=== PATIENT | female | born 2000 | race African-American/Black ===

== ENCOUNTER 2024-06-05 16:41 | Emergency (ER) | payer SELFPAY ==
[~2024-06-05] VITALS: Ht 170.2 cm; Wt 81.8 kg
[~2024-06-05 16:41] MED LIST: NO MEDS
[2024-06-05 17:05] VITALS: TEMP 98
[2024-06-05 17:15] LABS: COVID AG,FIA SOURCE NASAL SWAB
[2024-06-05 17:17] LABS: APPEARANCE,URINE HAZY (CLEAR); BILIRUBIN,URINE NEGATIVE (NEGATIVE); COLOR,URINE LIGHT ORANGE (YELLOW); GLUCOSE, URINE (UA) NEGATIVE (NEGATIVE); KETONES,URINE TRACE mg/dL (NEGATIVE); LEUKOCYTE ESTERASE ,URINE SMALL (NEGATIVE); NITRATE,URINE NEGATIVE (NEGATIVE); OCCULT BLOOD,URINE LARGE (NEGATIVE); PH,URINE 6.5 (5.0-8.0); PROTEIN,URINE 300-600,SEE CONFIRM mg/dL (NEGATIVE); SPECIFIC GRAVITIY, URINE 1.035 (1.003-1.030)
[2024-06-05 17:31] LABS: EOSINOPHILS % (AUTO) 0.3 % (1.0-6.0); HEMATOCRIT 47.1 % (36-46); HEMOGLOBIN 15.3 g/dL (12.0-16.0); LYMPHOCYTES # (AUTO) 1.7 K/uL (1.0-4.8); LYMPHOCYTES % (AUTO) 41.4 % (22.0-44.0); MEAN CORPUSCULAR HEMOGLOBIN 25.5 pg (26.0-34.0); MEAN CORPUSCULAR HGB CONC 32.4 G/dL (31.0-37.0); MEAN CORPUSCULAR VOLUME 79 fL (80-100); MONOCYTES # (AUTO) 0.7 K/uL (0.1-1.0); MONOCYTES % (AUTO) 16.2 % (2.0-9.0); NEUTROPHILS # (AUTO) 1.7 K/uL (1.8-7.7); NEUTROPHILS % (AUTO) 41.1 % (40.0-70.0); PLATELET COUNT (AUTO) 252 K/uL (150-450); RED CELL DISTRIBUTION WIDTH 13.4 % (11.5-14.5); WHITE BLOOD COUNT (AUTO) 4.1 K/uL (4.5-11.0)
[2024-06-05 17:34] LABS: ANION GAP 11 mmol/L (8-16); CALCIUM, TOTAL 8.7 mg/dL (8.8-10.5); CARBON DIOXIDE 25 mmol/L (22-29); CHLORIDE 99 mmol/L (98-107); CREATININE 1.24 mg/dL (0.60-1.30); GLOMERULAR FILTR. RATE CALC > 60 mL/min (>60); GLUCOSE,RANDOM 117 mg/dL (70-110); POTASSIUM 3.4 mmol/L (3.5-5.1); SODIUM SERUM 135 mmol/L (136-145); UREA NITROGEN, BLOOD 9 mg/dL (7-18)
[2024-06-05 17:35] LABS: INFLUENZA TYPE A NEGATIVE FOR TYPE A (NEGATIVE); INFLUENZA TYPE B NEGATIVE FOR TYPE B (NEGATIVE); SARS-COV2 (COVID) ANTIGEN,FIA Negative (Negative)
[2024-06-05 17:37] LABS: SULFOSALICYLIC ACID,URINE 1+ (Negative)
[2024-06-05 17:38] LABS: BACTERIA,URINE Few /HPF (None Seen); RBC,URINE Full Field /HPF (0-2)
[2024-06-05 17:45] LABS: HCG,QUANTITATIVE < 1 mIU/mL (0-6)
[2024-06-05 17:49] VITALS: BP 133/85; PULSE 98; RESP 16; O2SAT 99
[2024-06-05] MEDS: ONDANSETRON 4 MG TABLET PO ONE (19:12)
[2024-06-05] MEDS: IBUPROFEN 400 MG TABLET PO ONE (19:12)
[2024-06-05] MEDS: POTASSIUM CHLORIDE 20 MEQ ER TABLET PO ONE (19:12)
[2024-06-05] MEDS ORDERED: ONDA-104 PO (19:31)
== END 2024-06-05 19:42 | disposition home or self-care (01) ==
LOC: EMS 16:41
DX: J06.9 Acute upper respiratory infection, unspecified (principal); N92.0 Excessive and frequent menstruation with regular cycle; B97.89 Other viral agents as the cause of diseases classified elsewhere; R11.2 Nausea with vomiting, unspecified; R19.7 Diarrhea, unspecified; Z20.822 Contact with and (suspected) exposure to COVID-19
CPT/HCPCS: 99284; 87426; 80048; 81001; 84702; 85025; 87086; 87804; 36415; Q0162; 81002